=== PATIENT | male | born 1945 | race Caucasian/White ===

== ENCOUNTER 2017-05-12 15:19 | Emergency (ER) | payer OTHER ==
[~2017-05-12 15:19] MED LIST: ASPI-628 PO; ATOR10TA66 PO; CYAN500 PO; ERGO500029 PO; FERR-83 PO; FURO-128 PO; GLPZ5T PO; INSU100V7 SUBQ; Lisinopril PO; Metoprolol Tartrate PO
--- NOTE | 2017-05-12 15:48 | ED.REPORT ---
HPI-Cardiac Arrest Date of Service May 12, 2017 ED Provider: Kuldip Gardner MD A 72 year old male with a history of [place], hypertension, diabetes and COPD is brought to the ED via EMS due to witnessed cardiac arrest. The pt was with family at a boat launch today sitting in a truck and was slumped and unresponsive when they called to him. He was immediately removed from the truck and CPR was initiated. Paramedics engaged in CPR for 50 minutes. Upon arrival in the ED, the pt had been in twenty minutes of asystole. He received 5 fibrillation shocks, epinephrine and atropine IV prior to arrival. Nursing Notes Stated Complaint: CPR Nursing Notes Reviewed: Yes Allergies: Coded Allergies: Penicillins (Verified Allergy, Severe, 04/27/15) Scheduled ([Metoprolol Tartrate]) 25 MG TABLET 25 MG PO BID ([Lisinopril]) 10 MG TABLET 5 MG PO HS Aspirin (Aspir 81) 81 Mg Tablet.dr 81 MG PO DAILY Atorvastatin Calcium (Atorvastatin Calcium) 10 Mg Tablet 10 MG PO HS Cyanocobalamin (Vitamin B12) 1,000 Mcg Tablet 1,000 MCG PO DAILY Ergocalciferol (Vitamin D2) (Vitamin D2) 50,000 Unit Capsule 50,000 UNIT PO every sunday Ferrous Sulfate (Ferrous Sulfate) 325 Mg Tablet 325 MG PO BID Furosemide (Lasix) 40 Mg Tablet 40 MG PO DAILY Glipizide (Glipizide) 5 Mg Tablet 10 MG PO AM Glipizide (Glipizide) 5 Mg Tablet 5 MG PO PM Insulin Glargine (Lantus U100 Insulin Vial) 100 Unit/Ml Vial 80 UNIT SUBQ QAM General Time Seen by Provider: 15:35 Chief Complaint Cardiac arrest, found dwn Hx Obtained From: Son, EMS Arrived By: Ambulance Onset Occurred: 46 - 59 minutes ago Symptom Duration: Since onset Recent Healthcare: No recent doctor visit, No recent hospitalization Similar Sx Previous: No Past Medical History Past Medical History OH about 20 years ago Reports: COPD, Diabetes mellitus, Hypertension Past Surgical History cardiac catheterization Reports: Appendectomy Smoking History Former Smoker (quit 2010) Social History Alcohol Use: Denies alcohol use Drug Use: Denies drug use Other Social History: Good social support, Ambulatory Status Independent Review of Systems Unable to Obtain ROS Patient condition Physical Exam Initial Vital Signs see paper chart Initial VS: Unavailable flaccid and comatose ET tube in place upon arrival with CPR ongoing US immediately placed on heart cardiac standstill present and CPR discontinued Abdomen: Atraumatic Head / Eyes: Atraumatic ENT: Atraumatic Neck: Atraumatic Back: Atraumatic Upper Extremity / MS: Atraumatic Lower Extremity / Pelvis / MS: Atraumatic mottled extremities Mental Status: Positive: Unresponsive Re-Eval/Medical Decision Source of Hx: Old records Re-Evaluation/Progress #1: Time of Eval: 15:24 Re-Evaluation/Progress Note: US placed on heart and cardiac standstill is present. CPR is discontinued. Re-Evaluation/Progress #2: Time of Eval: 16:29 Re-Evaluation/Progress Note: Pt's condition is discussed with family. Family understands the situation. Counseled Regarding: Diagnosis Discharge & Departure Impression: Primary Impression: Cardiopulmonary arrest Disposition: All VS Reviewed: Yes Condition: Referrals: [facility] (PCP) (Family) Scribe Attestation Portions of this note were transcribed by Brandon Smyth. I, Dr. Gardner personally performed the history, physical exam and medical decision-making; I reviewed and confirmed the accuracy of the information in the transcribed note. copies to: [facility] Kuldip Gardner MD May 12, 2017 15:48 BRANDON SMYTH May 12, 2017 16:17
== END 2017-05-12 17:28 | disposition expired ==
LOC: SED 15:19 → EDBD 15:19 → SED 17:28
DX: I46.9 Cardiac arrest, cause unspecified (principal); I10 Essential (primary) hypertension; E11.9 Type 2 diabetes mellitus without complications; Z87.891 Personal history of nicotine dependence; I25.2 Old myocardial infarction; Z79.82 Long term (current) use of aspirin; Z88.0 Allergy status to penicillin; Z79.84 Long term (current) use of oral hypoglycemic drugs; Z79.4 Long term (current) use of insulin